=== PATIENT | male | born 1950 | race Caucasian/White ===

== ENCOUNTER → 2016-08-15 | Outpatient (CLI) | payer MEDICARE ==
[~2016-08-15] MED LIST: ALPR.5 PO; AMBI10TA PO; CLON0.2T PO; GABA300C3 PO; METO25 PO; METO25TA3 PO; MYCO250 PO; MYCO250C PO; RANI150 PO; RANI300T PO; SAND25 PO; ULOR40TA PO; ZOLP10TA3 PO; [UNRECOGNIZED DRUG - CODE] PO
[2016-08-15 11:08] LABS: PROTHROMBIN TIME - PATIENT 10.5 SEC (9.8-11.6)
[2016-08-15 11:10] LABS: HEMATOCRIT 41.6 % (39.0-51.0); MEAN CELL VOLUME 96.2 FL (80.0-100.0); MEAN CORPUSCULAR HEMOGLOBIN 32.8 PG (27.0-34.0); MEAN CORPUSCULAR HGB CONC 34.1 % (32.0-36.0); PLATELET COUNT 109 TH/MM3 (150-450); RED BLOOD COUNT 4.33 MIL/MM3 (4.50-5.90); RED CELL DISTRIBUTION WIDTH 13.2 % (11.6-17.2); REVIEW FLAG FINAL; WHITE BLOOD COUNT 3.7 TH/MM3 (4.0-11.0)
[2016-08-15 11:11] LABS: BICARBONATE 22.9 MEQ/L (21.0-32.0); POTASSIUM 4.7 MEQ/L (3.5-5.1)
[2016-08-15 11:22] LABS: BLOOD, URINE NEG (NEG); COMMENT (UR) CULT NOT INDICATED; CULTURE IF INDICATED CULT NOT INDICATED; GLUCOSE,URINE NEG (NEG); HYALINE CAST, URINE 10 /lpf (RARE); KETONE, URINE NEG (NEG); MUCUS URINE FEW /lpf (OCC); NITRITE,URINE NEG (NEG); SQUAMOUS EPITHELIAL CELL URINE <1 /hpf (0-5); URINE COLOR YELLOW (YELLW/STRAW)
== END ==
LOC: CPRE 09:51
PROVIDERS: ATTEND Orthopaedic Surgery
DX: Z01.810 Encounter for preprocedural cardiovascular examination (principal); Z01.811 Encounter for preprocedural respiratory examination; Z01.812 Encounter for preprocedural laboratory examination; S83.241A Other tear of medial meniscus, current injury, right knee, initial encounter; X58.XXXA Exposure to other specified factors, initial encounter
CPT/HCPCS: 36415; 80048; 81001; 85027; 85610

== ENCOUNTER → 2016-08-23 | Day surgery (SDC) | payer MEDICARE ==
--- NOTE | 2016-08-12 12:16 | MH ---
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 HISTORY The patient is a 66-year-old white male who has experienced pain of his right knee for almost one year duration. He described a gradual onset of soreness unrelated to injury or unusual activity and initially did not seek any evaluation or treatment while taking ibuprofen for pain management that did prove to be of some limited benefit. Within the past year he did undergo evaluation with his primary care physician at which time he received a steroid injection and was prescribed oral steroids for pain management. He was later encouraged to proceed with orthopedic evaluation and was subsequently seen by a sports medicine physician who recommended that he undergo MRI scan examination. Subsequent diagnostic testing in this regard identified a large horizontal tear of the medial meniscus involving the posterior horn associated with a joint effusion with chondromalacia and chondromalacia patellae for which the patient was subsequently seen by the undersigned physician in July of this year. At that time he described generalized pain about the anterior aspect of his right knee which had been aggravated by weightbearing activities. He had noted a minimal degree of swelling but had been unaware of any grinding clicking or giving way-like symptoms. His clinical findings were reviewed and treatment options discussed. The patient did receive a repeat steroid injection at that time with some limited benefit being noted. He was also given the option of proceeding with arthroscopic surgery as further disposition. He considered his options in this regard and given the nature of his lingering symptoms expressed his desire to proceed accordingly and in compliance with his wishes he is currently being admitted in order that the above be accomplished. PAST MEDICAL HISTORY, HOSPITALIZATIONS AND SURGERIES 1. Repair of an incisional hernia. 2. Left inguinal herniorrhaphy. 3. Vasectomy. 4. Operative treatment of his left eye for a lazy eye syndrome. 5. Tonsillectomy. 6. Colonoscopy. 7. Lithotripsy. 8. Radiation and chemotherapy for history of esophageal cancer. 9. Status post liver transplant for history of cirrhosis. 10. Additional operative procedures have included multiple upper endoscopies as follow-up for his esophageal cancer. ADDITIONAL MEDICAL ILLNESSES 1. Hypertension. 2. Elevated uric acid. 3. Acid reflux. 4. Anxiety disorder. MEDICATIONS 1. He had been taking cyclosporine following his liver transplant but recently had to discontinue the medication, having developed Stage IV renal disease. He is now taking Zortress 0.75 mg twice daily. 2. He also takes CellCept 250 mg two tablets twice daily as related to his liver transplant. 3. Metoprolol 25 mg twice daily. 4. Clonidine 0.2 mg at bedtime. 5. Uloric 40 mg daily. 6. Ranitidine 150 mg two at bedtime. 7. Xanax 0.5 mg three times daily p.r.n. 8. Ambien 10 mg p.r.n. ALLERGIES The patient describes a DRUG ALLERGY TO CODEINE which has been associated with any itching response. He also indicates a POSSIBLE DRUG ALLERGY TO SULFA but is unable to be more specific in this regard. REVIEW OF SYSTEMS He does wear glasses. Denies headache, seizure or syncope. No sinus congestion or epistaxis. Auditory acuity intact. No tinnitus. No bleeding gums. He had a history of dysphagia in the past but none currently. He has complete upper and partial lower dentures. Denies cough, shortness of breath, upper respiratory infection. Pneumonia in the past but no tuberculosis. No angina. He is medically managed for hypertension. He has diminished appetite as related to current medications. Bowel movements are regular. No hepatitis. Prior liver transplant was secondary to cirrhosis. No gallbladder disease. No ulcers. No hemorrhoids. No urinary tract infection. He has had kidney stones treated both with lithotripsy and spontaneous passage. No prostate disease. Fracture of the third toe of the right foot treated conservatively. No psychiatric illness. His remaining review of systems is unremarkable and noncontributory. FAMILY HISTORY The patient has been for 13 years, this being a second marriage. His is 75 years of age and described as being in good health. He has two sons and two daughters by a previous marriage, all in good health. His family history is otherwise positive for dementia and vascular disease. SOCIAL HISTORY The patient completed a high school education with college credits thereafter. 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 He denies active use of tobacco for at least 7 years but had been greater than a 40 pack-year user prior to that time. Heavy ethanol consumption in the past but limited to a social basis currently. PHYSICAL EXAMINATION VITAL SIGNS: Height 6 feet, 3 inches, weight 238 pounds. GENERAL: An alert, oriented and responsive 66-year-old white male who sits quietly upon the examination table with no obvious distress. HEAD, EYES, EARS, NOSE, AND THROAT: Pupils are equal, round and reactive to light. Extraocular movements full. Sclerae clear. External nares clear. External auditory canals clear. Edentulous in the maxillary distribution. Semi-edentulous in the mandibular distribution. Mucous membranes pink and moist. Pharynx clear. NECK: Supple. Active mobility without appreciable pain. Carotid pulse bilaterally. Trachea midline. Thyroid without enlargement. LUNGS: Clear to auscultation and percussion. No CVA tenderness. No discomfort throughout the dorsal lumbar spine. HEART: Regular rhythm, without murmur or gallop. ABDOMEN: Soft, nontender, although there is diminished sensation generalized about the abdominal region as related to prior history of surgery. Bowel sounds are present. RECTAL: Per primary care physician. EXTREMITIES: Right knee - No obvious swelling or effusion. There is some tenderness along the medial joint line without palpable deformity. Apprehension and compression sign negative. Limited mobility in the 100 degree range of flexion without associated crepitation or instability. No collateral ligamentous laxity. Geovanna test and drawer sign negative. Pivot shift and Jose sign positive for medial compartment pain. Straight-leg raising unremarkable at 80 degrees. Satisfactory mobility of the right hip with no associated pain. Independent gait. NEUROLOGIC: Cranial nerves II-XII grossly intact. IMPRESSION Medial meniscus tear right knee. Tenosynovitis right knee. Pain right knee. Effusion right knee. Chondromalacia right knee. Chondromalacia patellae right knee. PLAN Arthroscopic surgery and possible arthrotomy right knee. The nature of the planned surgical procedure, the potential complications and risks associated, the expectations of surgery and the consent form were thoroughly reviewed with the patient in the presence of his prior to admission to the hospital. Geo has indicated his full understanding regarding all of the above and given consent to proceed with treatment as outlined. Medical evaluation and clearance for surgery will be completed by his primary care physician, Dr. Scales. Jesi Toussaint MD NBS/SSB /11:32 AM 11:58 AM
[~2016-08-23] VITALS: Ht 190.5 cm; Wt 109.1 kg
[~2016-08-23] MED LIST changes: +DEXAMETHASONE SOD PHOS 4 MG/ML VIAL ONE; +DO NOT ADM ANY ANTICOAGULANT DRUGS XX PRN; +FAMOTIDINE 20 MG/2 ML VIAL ONE; -GABA300C3 PO; +INSULIN HUMAN REGULAR 1,000 UNITS/10 ML VIAL SQ PRN; +LACTATED RINGER'S 1000 ML IV SCH; +LIDOCAINE HCL 2% PF SOLN 10 ML VIAL ONE; -METO25 PO; +METOPROLOL TARTRATE 25 MG TAB PO PRN; +MIDAZOLAM HCL 2 MG/2 ML VIAL ONE; +MORPHINE SULFATE 8 MG/ML INJ IM PRN; -MYCO250C PO; +ONDANSETRON HCL 4 MG/2 ML VIAL IV PUSH ONE; +PHENYLEPH/NS 1000 MCG/10 ML SYR IV ONE; +POVIDONE IODINE 7.5% SCRUB 118 ML BOTTLE TOP SCH; +PROMETHAZINE INJ 25 MG/ML VIAL IM PRN; +PROPOFOL 200 MG/20 ML AMP IV ONE; -RANI150 PO; -SAND25 PO; +SODIUM CHLORID 0.9% 500 ML IV SCH; +TRIAMCINOLONE ACETONIDE 40 MG/ML VIAL I-SYNOVIAL ONE; -ZOLP10TA3 PO; +ceFAZolin 2 GM PREMIX 50 ML IV SCH; +fentaNYL CITRATE 250 MCG/5 ML AMP ONE; +traMADol HCL 50 MG TAB PO PRN
[2016-08-23 06:11] VITALS: BP 118/73; PULSE 80; RESP 16; TEMP 98.2; O2SAT 97
[2016-08-23 09:45] VITALS: BP 126/79; PULSE 72; RESP 16; TEMP 97.4; O2SAT 98
--- NOTE | 2016-08-23 20:59 | MP ---
cc: JESI TOUSSAINT DATE OF SURGERY 08/23/16 PREOPERATIVE DIAGNOSIS 1. Medial meniscus tear of the right knee 2. Tenosynovitis right knee 3. Pain right knee 4. Effusion right knee 5. Chondromalacia and chondromalacia patellae the right knee. POSTOPERATIVE DIAGNOSIS 1. Medial meniscus tear of the right knee 2. Tenosynovitis right knee 3. Pain right knee 4. Effusion right knee 5. Chondromalacia and chondromalacia patellae the right knee. 6. Synovial plica right knee PROCEDURE 1. Partial medial and lateral meniscectomy right knee, 2. Chondroplasty of the patellofemoral joint and resection of synovial plica right knee SURGEON Yessenia Toussaint MD ANESTHESIA General by LMA FORMAT Following induction of satisfactory general anesthesia by LMA insertion as completed per the Department of Anesthesia, examination of the right knee revealed a satisfactory range of motion with no appreciable ligamentous instability. The extremity proper was positioned into the surgical services manager knee merino, prepped with Betadine solution and draped into a sterile field in the routine manner. Prior to initiation of the actual procedure, the standard time-out protocol was completed, all parameters were appropriately addressed and confirmed by operating room personnel. Arthroscopic instrumentation was introduced through stab wound utilizing cannula with sharp and blunt trocar. The inflow irrigation by way of a medial suprapatellar portal, the arthroscope through a lateral parapatellar portal and a probe through a medial parapatellar portal. Examination of the suprapatellar pouch revealed generalized reactive synovitis with a prominent synovial plica extending throughout the medial suprapatellar region. There was localized degenerative irregularity throughout the patellofemoral joint consistent with localized chondromalacia. Within the medial compartment, a degenerative tear involving the posterior horn of the medial meniscus was noted with a mild degree of articular irregularity involving femoral condyle and tibial plateau that was felt to be consistent with localized chondromalacia. The anterior cruciate ligament was identified and noted to be intact. Within the lateral compartment, there was a mild degenerative tear involving the body and anterior horn of the lateral meniscus with some associated chondromalacia changes. Utilizing a 4.0 aggressive resector, a partial medial and lateral meniscectomy was accomplished as well as localized debridement throughout both compartments. The shaver was thereafter oriented into the suprapatellar region where the previously identified synovial plica was resected followed by a chondroplasty of the patellofemoral joint. Upon completion of same, the joint space was thoroughly lavaged and suctioned dry. Portal sites were reapproximated with Steri-Strips over which Xeroform gauze and a bulky dry sterile dressing were placed. Anesthesia was discontinued and the patient thus transferred to a hospital stretcher and returned to the recovery room in satisfactory condition having tolerated his operative procedure well. Estimated blood loss was less than 5 mL. MD WALLACE Caba/ /8:38 AM /8:47 PM
== END | disposition home or self-care (01) ==
LOC: HSDC 05:11
PROVIDERS: ATTEND Orthopaedic Surgery
DX: S83.241A Other tear of medial meniscus, current injury, right knee, initial encounter (principal); S83.281A Other tear of lateral meniscus, current injury, right knee, initial encounter; M22.41 Chondromalacia patellae, right knee; M67.51 Plica syndrome, right knee; M65.9 Synovitis and tenosynovitis, unspecified; I10 Essential (primary) hypertension; K21.9 Gastro-esophageal reflux disease without esophagitis; F41.9 Anxiety disorder, unspecified; Z85.01 Personal history of malignant neoplasm of esophagus; Z94.4 Liver transplant status
CPT/HCPCS: 01400; 29880; J0690; J1100; J2250; J2370; J2405; J3010; J3301; J7120